=== PATIENT | male | born 1960 | race Caucasian/White ===

== ENCOUNTER → 2017-05-10 | Outpatient (CLI) | payer OTHER ==
[~2017-05-10] MED LIST: ALLO100T PO; ALPR0.25 PO; CARD240C6 PO; CHLO25TA2 PO; CLON0.1T PO; MAGN400T2 PO; OLME1TAB13 PO; PANT40TA3 PO; PARO25CR PO
[2017-05-10 09:41] LABS: AUTOMATED NEUTROPHIL # 4.4 TH/MM3 (1.8-7.7); BASOPHIL # 0.1 TH/MM3 (0-0.2); BASOPHIL % 0.8 % (0.0-2.0); EOSINOPHIL # 0.2 TH/MM3 (0-0.4); EOSINOPHIL % 3.6 % (0.0-4.0); HEMATOCRIT 45.7 % (39.0-51.0); HEMOGLOBIN 15.8 GM/DL (13.0-17.0); LYMPH % 20.1 % (9.0-44.0); LYMPHOCYTE # 1.3 TH/MM3 (1.0-4.8); MEAN CELL VOLUME 95.3 FL (80.0-100.0); MEAN CORPUSCULAR HEMOGLOBIN 32.9 PG (27.0-34.0); MEAN CORPUSCULAR HGB CONC 34.5 % (32.0-36.0); MEAN PLATELET VOLUME 9.1 FL (7.0-11.0); MONO % 8.9 % (0.0-8.0); MONOCYTE # 0.6 TH/MM3 (0-0.9); NEUT % 66.6 % (16.0-70.0); PLATELET COUNT 154 TH/MM3 (150-450); RED BLOOD COUNT 4.79 MIL/MM3 (4.50-5.90); RED CELL DISTRIBUTION WIDTH 13.5 % (11.6-17.2); WHITE BLOOD COUNT 6.7 TH/MM3 (4.0-11.0)
[2017-05-10 10:40] LABS: BILIRUBIN, URINE NEG (NEG); BLOOD, URINE NEG (NEG); GLUCOSE,URINE NEG (NEG); KETONE, URINE NEG (NEG); MUCUS URINE FEW /lpf (OCC); NITRITE,URINE NEG (NEG); SQUAMOUS EPITHELIAL CELL URINE <1 /hpf (0-5); URINE COLOR YELLOW (YELLW/STRAW); URINE LEUKOCYTE ESTERASE NEG (NEG)
--- NOTE | 2017-05-10 16:04 | EKG ---
Date Performed: 05/10/2017 Time Performed: 09:11:16 PTAGE: 56 years EKG: Sinus rhythm Normal ECG NO PREVIOUS TRACING DOCTOR: Megan Jenkins Interpretating Date/Time 05/10/2017 16:03:15
== END ==
LOC: CPRE 08:55
PROVIDERS: ATTEND Orthopaedic Surgery Orthopaedic Surgery of the Spine
DX: Z01.810 Encounter for preprocedural cardiovascular examination (principal); Z01.812 Encounter for preprocedural laboratory examination; Z01.818 Encounter for other preprocedural examination; M50.320 Other cervical disc degeneration, mid-cervical region, unspecified level; M50.33 Other cervical disc degeneration, cervicothoracic region
CPT/HCPCS: 36415; 81001; 85025; 93005

== ENCOUNTER 2017-05-24 06:09 | Inpatient (IN) | payer OTHER ==
[~2017-05-24] VITALS: Ht 182.9 cm; Wt 116.4 kg
[2017-05-24] MEDS ORDERED: SODIUM CHLORID 0.9% 500 ML IV PRN (07:00)
[2017-05-24] MEDS ORDERED: CHLORHEXIDINE GLUCONATE 2 % 1 PACK (2 CLOTHS) TOPICAL PRN (07:00)
[2017-05-24] MEDS ORDERED: LACTATED RINGER'S 1000 ML IV PRN (07:00)
[2017-05-24] MEDS ORDERED: POVIDONE IODINE 5% (ANTISEPSIS KIT) 4 APPLICATIONS EACH NARE PRN (07:00)
[2017-05-24] MEDS ORDERED: CHLORHEXIDINE GLUCONATE 4% SOLN 120 ML BTL TOPICAL SCH (07:00)
[2017-05-24] MEDS ORDERED: METOPROLOL TARTRATE 25 MG TAB PO PRN (07:00)
[2017-05-24] MEDS ORDERED: GENTAMICIN SULFATE 80 MG/2 ML VIAL ONE (07:42)
[2017-05-24] MEDS ORDERED: BUPIVACAINE/EPINEPHRINE 0.25% PF 30 ML VIAL ONE (07:43)
[2017-05-24] MEDS ORDERED: ceFAZolin 2 GM PREMIX 50 ML IV SCH (07:45)
[2017-05-24] MEDS ORDERED: SUFentanil INJ 250 MCG/5 ML AMP ONE (08:04)
[2017-05-24] MEDS ORDERED: ACETAMINOPHEN 1000 MG/100 ML 100 ML IV ONE (08:30)
[2017-05-24] MEDS: VANCOMYCIN 1000 MG/NS 250 ML (for <70 kg) IV SCH ×4 (08:45→09:25)
[2017-05-24] MEDS ORDERED: diphenhydrAMINE HCL 50 MG/ML VIAL ONE (09:12)
[2017-05-24] MEDS ORDERED: ALPRAZolam 0.25 MG TAB PO PRN (10:00)
[2017-05-24] MEDS ORDERED: cloNIDine HCL 0.1 MG TAB PO PRN (10:00)
[2017-05-24] MEDS ORDERED: Post-op Orders (for Pharmacy) XX ONE (10:00)
[2017-05-24] MEDS ORDERED: MORPHINE SULFATE 4 MG/ML INJ IV PUSH PRN (10:00)
[2017-05-24] MEDS ORDERED: oxyCODONE/ACETAMINOPHEN 5 MG/325 MG TAB PO PRN ×2 (10:00)
[2017-05-24] MEDS ORDERED: ONDANSETRON HCL 4 MG/2 ML VIAL IV PUSH PRN (10:00)
[2017-05-24] MEDS ORDERED: BISACODYL 10 MG SUPP RECTAL PRN (10:00)
--- NOTE | 2017-05-24 11:28 | PD.OP ---
cc: Bigg Alanis MD; Shimon Alanis MD Operative Report Date of Surgery: May 24, 2017 Preoperative Diagnosis: Osteophyte disc complex C5 6. Cervical radiculopathy. Cervical myelopathy Postoperative Diagnosis: Same Procedure: Anterior cervical discectomy decompression and bilateral foraminotomies, C5 6. Left anterior iliac crest bone graft Anesthesia: Gen. Surgeon: Shimon Alanis Flanger(s): ADRIAN Mack Operation and Findings: EBL: 100 cc INDICATIONS: Patient is a 56-year-old male with significant radicular findings related to an osteophyte disc complex, significant cervical stenosis and spinal cord changes on MRI scan. He has a high-grade central stenosis at the C5 6 level. Despite conservative care, the patient's painful and symptomatically. He presents for surgical treatment. NOTE: Elizabeth Mack PA-C was present for the entire surgical procedure as my first aid instructor. In my medical opinion her skill and care was necessary for proper management of this patient PROCEDURE: The patient was brought to the operating room and anesthetized in the supine position. This patient was positioned supine on the radiolucent table. All pressure points were protected in the anterior cervical spine and iliac crest was scrubbed with alcohol followed by Hibiclens followed by ChloraPrep. A timeout was done and antibiotics were given within 1 hour time window. Lateral radiographic images were used identifying the proper level. A right anterior incision was made in line with skin creases. The platysma was opened in line with the incision. Deep dissection continued in the interval between the carotid sheath and the esophagus. The longus-coli muscles were lifted on both sides and retractors were positioned allowing good exposure. Lateral radiographic images were used to identify the proper level. [place] style interosseous pins were placed at C5 and C6 allowing exposure to that level. The microscope was rolled into the field. A total discectomy was accomplished and posterior osteophytes were removed. The posterior longitudinal ligament and annulus was taken down. Bilateral foraminotomies were accomplished. The endplates were squared up anticipating later bone grafting. A blunt probe could be placed out each foramen without evidence of nerve root compromise. The left iliac crest was approached. A small stab incision was made allowing percutaneous access to the anterior iliac crest. Multiple cores of cancellous bone were harvested and taken to the back table to be used for later bone grafting. The wound was irrigated anesthetized and closed with 4-0 Vicryl followed by Dermabond. The case was turned over to Dr. Bigg Alanis for fusion and instrumentation per his dictation. 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 There is evidence of a central calcified disc herniation at that level. The patient had an excellent decompression without any apparent complication. A blunt probe could be placed out each foramen without difficulty. NOTE: This surgery was performed in 2 parts. The first part was the neurosurgical decompression performed under the variable power stereo microscope by the undersigned in addition to the bone graft. The second portion of the surgery will be performed by the orthopedic spine component by co -surgeon, Dr. Bigg Alanis for the anterior fusion with interbody cage and anterior plate. The skill of 2 surgeons was necessary to perform distinct separate procedural services as dictated above and dictated in the following operative note by Dr. Bigg Alanis. Shimon Alanis MD May 24, 2017 11:28
[2017-05-24] MEDS ORDERED: OXYC1TAB63 PO (11:30)
[2017-05-24] MEDS ORDERED: ROCURONIUM INJ 50 MG/5 ML SYRINGE IV PUSH ONE (12:00)
[2017-05-24] MEDS ORDERED: LIDOCAINE HCL 1% PF 5 ML SYRINGE OTHER ONE (12:00)
[2017-05-24] MEDS ORDERED: PROPOFOL 200 MG/20 ML AMP IV ONE (12:00)
[2017-05-24] MEDS ORDERED: NORMOSOL R INJ 2,000 ML IV ONE (12:00)
[2017-05-24] MEDS ORDERED: ePHEDrine/NS 25 MG/5 ML SYRINGE IV ONE (12:00)
[2017-05-24] MEDS ORDERED: DEXAMETHASONE SOD PHOS 4 MG/ML VIAL IV ONE (12:00)
[2017-05-24] MEDS ORDERED: SUCCINYLCHOLINE CHLORIDE 200 MG/10 ML VIAL IV ONE (12:00)
[2017-05-24] MEDS ORDERED: ONDANSETRON HCL 4 MG/2 ML VIAL IV ONE (12:00)
[2017-05-24] MEDS ORDERED: PHENYLEPH/NS 1000 MCG/10 ML SYR IV ONE (12:00)
[2017-05-24] MEDS ORDERED: ceFAZolin INJ 1,000 MG VIAL IV ONE (12:00)
[2017-05-24] MEDS ORDERED: MIDAZOLAM HCL 2 MG/2 ML VIAL ONE (12:37)
[2017-05-24] MEDS: LACTATED RINGER'S 1000 ML INJ 1,000 ML IV SCH ×2 (13:00→19:23)
--- NOTE | 2017-05-24 13:15 | MP ---
cc: BIGG HOLGUIN DATE OF SURGERY: May 24, 2017 PREOPERATIVE DIAGNOSIS 1. C4-5 osteophyte disk complex, moderately severe spinal stenosis, spinal cord compression. 2. Cervical spine degenerative disk osteoarthritis. 3. Cervical myelopathy with bilateral cervical radiculitis. POSTOPERATIVE DIAGNOSIS 1. C4-5 osteophyte disk complex, moderately severe spinal stenosis, spinal cord compression. 2. Cervical spine degenerative disk osteoarthritis. 3. Cervical myelopathy with bilateral cervical radiculitis. PROCEDURE C5-6 interbody fusion; C5-6 [employer] ACC anterior cervical cage; [employer] Rauscher anterior spinal instrumentation. SURGEON Bigg Holguin MD ACCOUNT EXECUTIVE [employer] SALES RENALDO Herring ESTIMATED BLOOD LOSS 75 ccs for the entire case. ANESTHESIA General. DRAINS None. PLAN OF ACTIVITY Per orders. CONDITION Stable. COMPLICATIONS None. PROCEDURE Dr. Shimon Holguin and myself were co-surgeons. Dr. Shimon Holguin performed the neurosurgical decompression at C5-6 and anterior iliac crest bone grafting. I was not present for his portion of the procedure. I performed the orthopedic stabilization and fusion portion of the procedure which I will describe in the operative note. My therapy administrative assistant RENALDO Herring was present for the entire surgical case. She was medically necessary for the entire case because of the complexity of the case and to facilitate the performance of the procedure. The JACKERMAN at the back table was not a skill set to manipulate the instruments. The endplates were prepared for fusion. The hyaline cartilage endplate was removed using angled curettes and burs. A 6 10 x 12 ACC cage was placed in the interspace in a satisfactory manner, this was done under fluoroscopic guidance. Anterior iliac crest bone grafting was used under fluoroscopic guidance and iliac crest bone grafting of the interbody fusion. Anterior osteophytes were removed using multiple different types of rongeurs and bur. 25 mm plate was used for anterior spinal instrumentation. Two tack pins were used, appropriate position was confirmed under fluoroscopic guidance AP and lateral plane. Two screws were used in the vertebral body at C5 and C6. Each of these screws were 14 mm length, 4.0 mm diameter fixed angled screws. Each of these screws were drilled, screws were inserted. Each screw head was appropriately locked to the plate. Intraoperative fluoroscopy AP and lateral plane confirmed satisfactory position of the interbody bone graft at C5-6, satisfactory position of the ACC anterior cervical cage at C5-6, satisfactory position of anterior spinal instrumentation at C5-6. The wound was irrigated with copious amounts of sterile saline antibiotic solution. The wound itself was dry. Surgiflo was used. There was found to be no evidence of any further bleeding. The wound was closed in multiple layers using 3-0 Vicryl suture, skin was approximated with running subcuticular 4-0 Vicryl and Dermabond was placed over the skin incision. Sterile dressing was applied. The patient had a [place] cervical orthosis applied. The patient tolerated the procedure well and arrived in the recovery room in stable and satisfactory condition. MD KORIN Seals/ASA /12:26 PM /12:44 PM
--- NOTE | 2017-05-24 13:32 | RADRPT ---
EXAM DATE/TIME: 05/24/2017 09:35 [facility] COMPARISON: No previous studies available for comparison. INDICATIONS : Cervical fusion of C5/6. MEDICAL HISTORY : Unobtainable. SURGICAL HISTORY : Unobtainable. ENCOUNTER: Initial ACUITY: 1 day PAIN SCORE: Non-responsive. LOCATION: Cervical spine. FINDINGS: 3 lateral spot intraoperative images of the cervical spine showing anterior fusion hardware at C5-6. CONCLUSION: Spot intraoperative images showing anterior hardware at C5-6. Berry Moran MD on May 24, 2017 at 13:28 Board Certified Radiologist. This report was verified electronically.
[2017-05-24] MEDS ORDERED: DO NOT ADM ANY ANTICOAGULANT DRUGS PRN (14:00)
[2017-05-24 16:00] VITALS: BP 152/95; PULSE 99; RESP 17; TEMP 95.5; O2SAT 93
[2017-05-24 20:25] VITALS: BP 124/80; PULSE 112; RESP 17; TEMP 96.5; O2SAT 94
[2017-05-25 00:29] VITALS: BP 123/77; PULSE 105; RESP 18; TEMP 97; O2SAT 96
[2017-05-25 04:11] VITALS: BP 132/79; PULSE 94; RESP 17; TEMP 97.2; O2SAT 96
--- NOTE | 2017-05-25 07:49 | HHI.DS ---
Discharge Summary Admission Date May 24, 2017 at 06:09 Discharge Date: May 25, 2017 Admitting Diagnosis see below Diagnosis: (1) Cervical spinal stenosis Diagnosis: Principal ICD Codes: M48.02 - Spinal stenosis, cervical region (2) Degenerative disc disease, cervical Diagnosis: Principal ICD Codes: M50.30 - Other cervical disc degeneration, unspecified cervical region Procedures ACDF C56, bone graft. Brief History This is a 56 year old male patient Discharge Disposition: Discharge Home Discharge Instructions Diet Instructions: As Tolerated, No Restrictions, Soft Diet, High Fiber Diet Additional Diet Instructions: Soft diet for 48-72 hours Activities You Can Perform: See Additionl Instruction Activities to Avoid: Strenuous Activity Additional Activity Instruc.: Cervical brace full-time New Medications: Oxycodone HCl/Acetaminophen (Oxycodone-Acetaminophen 5-325) 5 Mg-325 Mg Tablet 1 TAB PO Q4H PRN for Pain, #50 TAB Continued Medications: Allopurinol (Allopurinol) 100 Mg Tab 100 MG PO DAILY for Gout, #30 TAB 0 Refills Alprazolam (Alprazolam) 0.25 Mg Tab 0.125 MG PO Q4H PRN for ANXIETY, TAB 0 Refills Chlorthalidone (Chlorthalidone) 25 Mg Tab 25 MG PO DAILY, TAB 0 Refills Clonidine (Clonidine) 0.1 Mg Tab 0.1 MG PO DIRECTED PRN for SBP> OR = 180, DBP> OR = 100, #60 TAB 0 Refills Diltiazem CD 24 HR (Cardizem CD 24 HR) 240 Mg Caper 240 MG PO DAILY, #30 CAP 0 Refills Magnesium Oxide (Magnesium Oxide) 400 Mg Tab 400 MG PO DAILY for Nutritional Supplement, TAB 0 Refills Olmesartan (Olmesartan) 40 Mg Tab 40 MG PO DAILY for Blood Pressure Management, #30 TAB 0 Refills Pantoprazole (Pantoprazole) 40 Mg Tab 40 MG PO DAILY for Reflux, #30 TAB 0 Refills Paroxetine ER (Paxil CR) 25 Mg Tab 25 MG PO DAILY, #30 TAB 0 Refills Vika Zuñiga May 25, 2017 07:49
--- NOTE | 2017-05-25 07:49 | HHI.DCPOC ---
Discharge Care Plan Diagnosis: (1) Cervical spinal stenosis (2) Degenerative disc disease, cervical Your Health Problems Are: Incision/Drains Swelling Goals to Promote Your Health * To prevent worsening of your condition and complications * To maintain your health at the optimal level Directions to Meet Your Goals Take your medications as prescribed Follow your dietary instruction Follow activity as directed Keep your appointments as scheduled Take your immunizations and boosters as scheduled If your symptoms worsen call your PCP, if no PCP go to Urgent Care Center or Emergency Room Smoking is Dangerous to Your Health. Avoid second hand smoke Call the 24-hour hour crisis hotline for domestic abuse at Vika Zuñiga May 25, 2017 07:49
[2017-05-25 07:50] VITALS: BP 133/88; PULSE 94; RESP 18; TEMP 95.9; O2SAT 97
--- NOTE | 2017-05-25 07:52 | PD.ORT.PN ---
Subjective Subjective Remarks Doing very well. Throat is mildly sore but no complaints otherwise. States pain is well controlled. No new arm complaints. States his 'legs even feel better'. No CP or SOB. Objective Vitals Vital Signs Date Time Temp Pulse Resp B/P (MAP) Pulse Ox O2 Delivery O2 Flow Rate FiO2 05/25/17 04:11 97.2 94 17 132/79 (96) 96 05/25/17 00:29 97.0 105 18 123/77 (92) 96 05/24/17 20:25 96.5 112 17 124/80 (95) 94 05/24/17 16:00 95.5 99 17 152/95 (114) 93 05/24/17 14:00 97.8 101 12 123/69 (87) 96 Nasal Cannula 2 05/24/17 13:45 98 12 148/67 (94) 95 Nasal Cannula 2 05/24/17 13:30 100 12 152/82 (105) 95 Nasal Cannula 2 05/24/17 13:15 102 14 142/73 (96) 95 Nasal Cannula 2 05/24/17 13:00 102 14 153/68 (96) 95 Nasal Cannula 2 05/24/17 12:45 103 12 170/75 (106) 97 T-Piece 15 05/24/17 12:31 98.6 101 10 150/89 (109) 98 T-Piece 15 I/O 05/24/17 05/24/17 05/24/17 05/25/17 05/25/17 05/25/17 07:00 15:00 23:00 07:00 15:00 23:00 Intake Total 1800 ml 360 ml 1340 ml Output Total 75 ml Balance 1725 ml 360 ml 1340 ml Intake Oral 360 ml 240 ml IV Total 1100 ml Other 1800 ml Output Estimated Blood Loss 75 ml # Voids 3 2 # Bowel Movements 0 0 Procedures ACDF C56, bone graft. Objective Remarks Sitting up in bed NAD VSS C/S Dressing c/d/i, no drainage, minimal swelling +motor biceps, brachiorad, +sens, +nvi Assessment & Plan Ortho Post Op Day #: 1 Problem List: (1) Cervical spinal stenosis ICD Codes: M48.02 - Spinal stenosis, cervical region (2) Degenerative disc disease, cervical ICD Codes: M50.30 - Other cervical disc degeneration, unspecified cervical region Assessment and Plan pod#1 s/p ACDF C56 Ortho stable. Pain well controlled - po meds as needed. Ok to d/c home today. Dry dressing changes after 48 hours. He can begin to shower at that time. Cervical collar interventional sale consultant for 2 weeks. Ok to remove for hygiene. F/U in 2 weeks as scheduled. No HHC needed. Vika Zuñiga May 25, 2017 07:52
[2017-05-25] MEDS ORDERED: DILTIAZEM-CD 240 MG CAP ER PO SCH (09:00)
[2017-05-25] MEDS ORDERED: CHLORTHALIDONE 25 MG PO SCH (09:00)
[2017-05-25] MEDS ORDERED: PANTOPRAZOLE SOD 40 MG DELAYED RELEASE TAB PO SCH (09:00)
[2017-05-25] MEDS ORDERED: [UNRECOGNIZED DRUG - OTHER] PO SCH (09:00)
[2017-05-25] MEDS ORDERED: DOCUSATE SODIUM 100 MG CAP PO SCH (09:00)
[2017-05-25] MEDS ORDERED: LOSARTAN 50 MG TAB PO SCH (09:00)
[2017-05-25] MEDS ORDERED: ALLOPURINOL 100 MG TAB PO SCH (09:00)
[2017-05-25] MEDS ORDERED: MULTIVITAMINS/MINERALS THERAPEUTIC TAB PO SCH (09:00)
[2017-05-25] MEDS ORDERED: PARoxetine 25 MG CONTROLLED RELEASE TAB PO SCH (09:00)
[2017-05-25] MEDS ORDERED: MAGNESIUM OXIDE 400 MG TAB PO SCH (11:00)
== END 2017-05-25 10:51 | disposition home or self-care (01) | DRG 472 ==
LOC: HSDI 06:09 → EDUNIT# 07:30 → N06A 15:11
PROVIDERS: ADMIT Orthopaedic Surgery Orthopaedic Surgery of the Spine; ATTEND Orthopaedic Surgery Orthopaedic Surgery of the Spine
PROC: 0RT30ZZ Resection of Cervical Vertebral Disc, Open Approach (ICD-10-PCS; 2017-05-24)
PROC: 0QB30ZZ Excision of Left Pelvic Bone, Open Approach (ICD-10-PCS; 2017-05-24)
PROC: 0RG10A0 Fusion of Cervical Vertebral Joint with Interbody Fusion Device, Anterior Approach, Anterior Column, Open Approach (ICD-10-PCS; principal; 2017-05-24 08:48)
DX: M25.78 Osteophyte, vertebrae (principal); M50.022 Cervical disc disorder at C5-C6 level with myelopathy; M48.02 Spinal stenosis, cervical region; I10 Essential (primary) hypertension; M50.10 Cervical disc disorder with radiculopathy, unspecified cervical region; M19.90 Unspecified osteoarthritis, unspecified site; M10.9 Gout, unspecified; E78.00 Pure hypercholesterolemia, unspecified; K21.9 Gastro-esophageal reflux disease without esophagitis; F32.9 Major depressive disorder, single episode, unspecified; F41.9 Anxiety disorder, unspecified; Z72.0 Tobacco use; Z88.0 Allergy status to penicillin
CPT/HCPCS: 72040; 76000; C1713; J0131; J0330; J0690; J1100; J1200; J1580; J2250; J2370; J2405; J3370; J7050; J7120